=== PATIENT | female | born 1965 | race American Indian/Alaskan Native ===

== ENCOUNTER 2019-08-09 11:06 | Emergency (ER) | payer BC ==
--- NOTE | 2019-08-09 11:43 | EDM.PDOC ---
ED HPI GENERAL MEDICAL PROBLEM - General Chief Complaint: ENT Problem Stated Complaint: COLD SYMPTOMS SINCE SATURDAY Time Seen by Provider: 08/09/19 11:43 Source of Information: Reports: Patient, RN, RN Notes Reviewed History Limitations: Reports: No Limitations - History of Present Illness INITIAL COMMENTS - FREE TEXT/NARRATIVE: patient presents to ER with complaint of sinus congestion and cough for the past 4-5 days. Patient states she has had sinus surgery twice in the past and has significant troubles with sinus infections. States she's been feeling worn down, having some headaches. Denies any fever but admits to chills at times. Denies any nausea or vomiting, diarrhea. Patient states she also has an abscess on her right lower molar. She states this happens frequently as well, but she does not like going to the dentist, and states she has been draining it on her own. Onset: Gradual Onset Date: 08/06/19 Generalized Pain Score (Numeric/FACES): 5 - Related Data Allergies Allergy/AdvReac Type Severity Reaction Status Date / Time clarithromycin [From Biaxin] Allergy Rash Verified 08/09/19 11:14 metronidazole [From Flagyl] Allergy Rash Verified 08/09/19 11:14 Penicillins Allergy Rash Verified 08/09/19 11:14 vancomycin Allergy Hives Verified 08/09/19 11:14 Home Meds: Home Meds Esomeprazole Magnesium [Nexium] 20 mg PO DAILY 08/09/19 [History] Past Medical History HEENT History: Reports: Impaired Vision Gastrointestinal History: Reports: GERD, Hiatal Hernia [employer] History: Reports: Dermatologic History: Reports: Other (See Below) Other Dermatologic History: Dermatitis to bilateral hands - Past Surgical History HEENT Surgical History: Reports: Naso-Sinus Surgery Social & Family History - Tobacco Use Smoking Status *Q: Current Some Day Smoker Years of Tobacco use: 2 Packs/Tins Daily: 0.2 - Caffeine Use Caffeine Use: Reports: Coffee - Recreational Drug Use Recreational Drug Use: No ED ROS GENERAL - Review of Systems Review Of Systems: Comprehensive ROS is negative, except as noted in HPI. ED EXAM, GENERAL - Physical Exam Exam: See Below Exam Limited By: No Limitations General Appearance: Alert, WD/WN, No Apparent Distress Eye Exam: Bilateral Eye: EOMI, Normal Inspection Ears: Normal External Exam, Hearing Grossly Normal Nose: Normal Inspection Throat/Mouth: Normal Inspection, Normal Voice, No Airway Compromise, Other ( swelling and erythema to the bottom right first molar) Head: Atraumatic, Normocephalic, Facial Tenderness (frontal and maxillary) Neck: Normal Inspection, Supple, Non-Tender, Full Range of Motion Respiratory/Chest: No Respiratory Distress, Lungs Clear, Normal Breath Sounds, No Accessory Muscle Use, Chest Non-Tender Cardiovascular: Normal Peripheral Pulses, Regular Rate, Rhythm, No Edema, No Gallop, No JVD, No Murmur, No Rub Peripheral Pulses: 2+: Radial (L), Radial (R) GI/Abdominal: Normal Bowel Sounds, Soft, Non-Tender (Female) Exam: Deferred Rectal (Female) Exam: Deferred Back Exam: Normal Inspection, Full Range of Motion, NT Extremities: Normal Inspection, Normal Range of Motion, Non-Tender, Normal Capillary Refill, No Pedal Edema Neurological: Alert, Oriented, CN II-XII Intact, Normal Cognition, Normal Gait, Normal Reflexes, No Motor/Sensory Deficits Psychiatric: Normal Affect, Normal Mood Skin Exam: Warm, Dry, Intact, Normal Color, No Rash Lymphatic: Adenopathy (bilateral anterior cervical +2) Course - Vital Signs Last Recorded V/S: Last Vital Signs Temp 97.7 F 08/09/19 11:09 Pulse 104 H 08/09/19 11:09 Resp 18 08/09/19 11:09 BP 133/83 08/09/19 11:09 Pulse Ox 97 08/09/19 11:09 - Orders/Labs/Meds Labs: influenza A: Negative Influenza B: Negative Rapid strep: Negative Departure - Departure Time of Disposition: 12:08 Disposition: Home, Self-Care 01 Condition: Fair Clinical Impression: Dental abscess Sinusitis Qualifiers: Sinusitis location: frontal Chronicity: acute Recurrence: recurrent Qualified Code(s): J01.11 - Acute recurrent frontal sinusitis - Discharge Information *PRESCRIPTION DRUG MONITORING PROGRAM REVIEWED*: No *COPY OF PRESCRIPTION DRUG MONITORING REPORT IN PATIENT FELIZ: No Instructions: Dental Abscess, [id number], Sinusitis, Adult, [id number] Referrals: PCP,Unknown [Ordering Only Provider] - Forms: ED Department Discharge Additional Instructions: RX: Doxycycline Follow up with your dentist regarding dental abscess Follow up with your primary care facility if no improvement May use over the counter decongestant as directed May use over the counter cough medications as directed Sepsis Event Note - Evaluation Sepsis Screening Result: No Definite Risk - Focused Exam Date Exam was Performed: 08/10/19 Time Exam was Performed: 10:00
== END 2019-08-09 12:15 | disposition home or self-care (01) ==
LOC: DL.ED 11:06
DX: J01.11 Acute recurrent frontal sinusitis (principal); K04.7 Periapical abscess without sinus; K21.9 Gastro-esophageal reflux disease without esophagitis; F17.210 Nicotine dependence, cigarettes, uncomplicated; Z88.0 Allergy status to penicillin; Z88.1 Allergy status to other antibiotic agents; Z79.899 Other long term (current) drug therapy
CPT/HCPCS: 87081; 87430; 87804; 99283

== ENCOUNTER 2021-09-23 18:37 | Emergency (ER) | payer BC ==
[2021-09-23] MEDS ORDERED: HYDROmorphone 0.5 MG/0.5 ML Syringe IVPUSH ONE (21:00)
[2021-09-23] MEDS ORDERED: Ketorolac 30 MG/ML SDV IVPUSH ONE (22:09)
== END 2021-09-23 22:28 | disposition home or self-care (01) ==
LOC: DL.ED 18:37
DX: S39.92XA Unspecified injury of lower back, initial encounter (principal); E78.00 Pure hypercholesterolemia, unspecified; K21.9 Gastro-esophageal reflux disease without esophagitis; Z72.0 Tobacco use; Z88.0 Allergy status to penicillin; Z88.1 Allergy status to other antibiotic agents; Z79.899 Other long term (current) drug therapy; W20.8XXA Other cause of strike by thrown, projected or falling object, initial encounter
CPT/HCPCS: 81003; 96374; 96375; 99283; J1170; J1885

== ENCOUNTER 2022-02-13 22:38 | Emergency (ER) | payer BC ==
[2022-02-14] MEDS: Doxycycline Monohydrate 100 MG Cap PO ONE (00:24)
[2022-02-14] MEDS: Clindamycin HCl 150 MG Cap PO ONE (00:24)
[2022-02-14] MEDS: cefTRIAXone 500 MG Vial IM ONE (00:25)
[2022-02-14] MEDS: Lidocaine 1% 30 ML SDV ONE (00:41)
== END 2022-02-14 00:47 | disposition home or self-care (01) ==
LOC: DL.ED 22:38
DX: N76.0 Acute vaginitis (principal); Z20.2 Contact with and (suspected) exposure to infections with a predominantly sexual mode of transmission; F41.9 Anxiety disorder, unspecified; F32.A Depression, unspecified; F17.210 Nicotine dependence, cigarettes, uncomplicated; K21.9 Gastro-esophageal reflux disease without esophagitis; E78.00 Pure hypercholesterolemia, unspecified; Z88.1 Allergy status to other antibiotic agents; Z88.0 Allergy status to penicillin; Z88.8 Allergy status to other drugs, medicaments and biological substances; Z79.899 Other long term (current) drug therapy
CPT/HCPCS: 81001; 81003; 87086; 87210; 87491; 87563; 87591; 96372; 99283; A9270-GY; J0696

== ENCOUNTER 2022-09-05 19:27 | Emergency (ER) | payer BC ==
[2022-09-05 20:32] LABS: CORONAVIRUS COVID-19 NAA NEGATIVE (NEGATIVE); RESPIRATORY SYNCYTIAL VIR NAA NEGATIVE (NEGATIVE)
== END 2022-09-05 20:51 | disposition home or self-care (01) ==
LOC: DL.ED 19:27
DX: J06.9 Acute upper respiratory infection, unspecified (principal); E78.00 Pure hypercholesterolemia, unspecified; K21.9 Gastro-esophageal reflux disease without esophagitis; F17.210 Nicotine dependence, cigarettes, uncomplicated; Z88.1 Allergy status to other antibiotic agents; Z88.0 Allergy status to penicillin; Z88.8 Allergy status to other drugs, medicaments and biological substances; Z79.899 Other long term (current) drug therapy; Z20.822 Contact with and (suspected) exposure to COVID-19
CPT/HCPCS: 0241U; 99283

== ENCOUNTER 2023-04-18 19:26 | Emergency (ER) | payer BC ==
[2023-04-18] MEDS ORDERED: Ketorolac 30 MG/ML SDV IVPUSH ONE (19:54)
[2023-04-18] MEDS ORDERED: Dexamethasone 4 MG/ML SDV IVPUSH ONE (19:55)
[2023-04-18] MEDS ORDERED: Sodium Chloride 0.9% 10 ML Syringe FLUSH PRN (19:55)
[2023-04-18] MEDS ORDERED: Acetaminophen 325 MG Tab PO ONE (19:56)
[2023-04-18] MEDS ORDERED: Acetaminophen 500 MG Tab PO ONE (20:08)
== END 2023-04-18 21:58 | disposition home or self-care (01) ==
LOC: DL.ED 19:26
DX: S86.912A Strain of unspecified muscle(s) and tendon(s) at lower leg level, left leg, initial encounter (principal); E78.00 Pure hypercholesterolemia, unspecified; K21.9 Gastro-esophageal reflux disease without esophagitis; Z88.0 Allergy status to penicillin; Z88.1 Allergy status to other antibiotic agents; Z88.8 Allergy status to other drugs, medicaments and biological substances; Z79.899 Other long term (current) drug therapy
CPT/HCPCS: 73562; 96374; 96375; 99283; A9270; J1100; J1885; J3490